=== PATIENT | female | born 1985 | race Caucasian/White ===

== ENCOUNTER 2016-08-03 09:46 | Emergency (ER) | payer OTHER ==
--- NOTE | 2016-08-03 11:12 | EDDOCDS ---
Physician Documentation [facility] Name: Rani Adair Age: 30 yrs Sex: Female : 1985 Arrival Date: 08/03/2016 Time: 09:46 Bed Triage 3 Private MD: NO PRIMARY PHYSICIAN, . Disposition: 08/03/16 11:01 Discharged to Home/Self Care. Impression: Acute pharyngitis, unspecified. - Condition is Stable. - Discharge Instructions: Sore Throat. - Prescriptions for magic mouthwash Mucous Membrane Solution - as directed 5 milliliters by ORAL route 3-4 times daily As needed gargle, swish, spit. Maalox, Liquid Benadryl, Viscous Lidocaine. 1:1:1; 237 milliliter. - Medication Reconciliation, Local Pharmacy Hours form. - Follow up: Emergency Department; When: 2 - 3 days; Reason: Wound/Symptom Recheck, Recheck today's complaints, Continuance of care. Follow up: [facility]; When: Call to arrange an appointment; Reason: Recheck today's complaints, Continuance of care, To establish care. - Problem is new. - Symptoms are unchanged. Historical: - Allergies: No known drug Allergies; - Home Meds: 1. none - PMHx: none; - PSHx: left eye surgery; - Social history: Smoking status: Patient uses tobacco products, light tobacco smoker. No barriers to communication noted, The patient speaks fluent Ukrainian. - Family history: Not pertinent. - : The pt / caregiver states he / she is not on anticoagulants. Home medication list is obtained from the patient. - Exposure Risk Screening:: None identified. 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 0 in. (152.40 cm); 11:10 BP 125 / 67; Pulse 73; Resp 18; Temp 98.2(TE); Pulse Ox 98% on R/A; Pain 0/10; mdr 09:52 Body Mass Index 37.11 (86.18 kg, 152.40 cm) elp MDM: 09:54 Strep Screen, Nursing ordered. dt4 10:51 GATS (NEGATIVE STREP SCREEN) Ordered. EDMS 11:05 Financial registration complete. lg Signatures: Dispatcher [employer] EDPR Lynda Ramsay RN RN Sherry Floyd, Reg Reg Cherelle Aponte RN RN Yuly Reza, [place] PARobin dt4 MTDD
--- NOTE | 2016-08-03 11:12 | EDDOCDS ---
Nurse's Notes [facility] Name: Rani Adair Age: 30 yrs Sex: Female : 1985 Arrival Date: 08/03/2016 Time: 09:46 Bed Triage 3 Private MD: NO PRIMARY PHYSICIAN, . Diagnosis: Acute pharyngitis, unspecified Presentation: 08/03 09:53 Risk factors: Stridor is not present. Drooling is not present. Shortness of breath is kpj not present. Cellulitis is not present. Adult Sepsis Screening: The patient does not have new or worsening altered mentation. Patient's respiratory rate is less than 22. Systolic blood pressure is greater than 100. Patient has a qSOFA score of 0- Negative Sepsis Screen. Suicide/Homicide risk assessment- the patient denies having any suicidal and/or homicidal ideations and does not present with any other emotional, behavioral or mental health complaints. Status: Patient is not a director of women's services or dependent. Transition of care: patient was not received from another setting of care. 09:53 Acuity: SHAGUFTA Level 5 [facility] 09:53 Method Of Arrival: Walkin/Carried/Asstd [facility] 09:53 Presenting complaint: Patient states: sore throat x 3 days , just found out she is [facility] . Triage Assessment: 09:53 General: Appears in no apparent distress, comfortable, Behavior is appropriate for age, kpj pleasant. Pain: Location: throat Pain currently is 3 out of 10 on a pain scale. Pt Declines HIV testing. Neurological: Level of Consciousness is awake, alert, Oriented to person, place, time. EENT: Reports nasal congestion pain when swallowing Pain is 3 out of 10 on a pain scale. Respiratory: Airway is patent Respiratory effort is even, unlabored, Respiratory pattern is regular, symmetrical. Derm: Skin is pink, warm & dry. 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 none - PMHx: none; - PSHx: left eye surgery; - Social history: Smoking status: Patient uses tobacco products, light tobacco smoker. No barriers to communication noted, The patient speaks fluent Serbian. - Family history: Not pertinent. - : The pt / caregiver states he / she is not on anticoagulants. Home medication list is obtained from the patient. - Exposure Risk Screening:: None identified. Screenin:11 Screening information is obtained from the patient. Fall risk: No risks identified. dsf Assistance ADL's: requires no assistance with activities of daily living. Abuse/DV Screen: The patient / caregiver reports he/she is: not in a situation that causes fear, pain or injury. Nutritional screening: No deficits noted. Advance Directives: Currently, there is no health care proxy. home support is adequate. Assessment: 11:10 Adult Sepsis Screening: The patient does not have new or worsening altered mentation. dsf Patient's respiratory rate is less than 22. Systolic blood pressure is greater than 100. Patient has a qSOFA score of 0- Negative Sepsis Screen. General: Appears in no apparent distress, Behavior is appropriate for age, cooperative. Neurological: Level of Consciousness is awake, alert. Cardiovascular: Capillary refill < 3 seconds. Respiratory: Airway is patent Respiratory effort is even, unlabored, Respiratory pattern is regular, symmetrical. Derm: Skin is pink, warm & dry. Vital Signs: 09:52 BP 122 / 70; Pulse 85; Resp 16; Temp 98.0; Pulse Ox 100% ; Weight 86.18 kg; Height 5 elp ft. 0 in. (152.40 cm); 11:10 BP 125 / 67; Pulse 73; Resp 18; Temp 98.2(TE); Pulse Ox 98% on R/A; Pain 0/10; mdr 09:52 Body Mass Index 37.11 (86.18 kg, 152.40 cm) elp Vitals: 09:52 Log In Time: August 03, 2016 at 09:43. elp 10:50 Strep Screen is obtained and tested: Negative, a GATSNEG culture is ordered in [facility] and sent. ED Course: 09:49 Patient visited by Daja John PCA. elp 09:49 Patient moved to Waiting elp 09:52 NO PRIMARY PHYSICIAN, . is Private Physician. elp 09:52 Patient moved to Pre RCE elp 09:53 Patient visited by Daja John PCA. elp 09:53 Triage Initiated [facility] 10:40 Patient moved to Triage 3 dwg 10:41 Yuly Daniels [facility]-C [facility]. dt4 10:41 Anna Bal MD is Attending Physician. dt4 10:41 Patient visited by Yuly Daniels PA-C. dt4 10:53 GATS (NEGATIVE STREP SCREEN) Sent. dwg 11:01 [facility] is Referral Physician. dt4 11:11 The patient / caregiver is instructed regarding the plan of care and ED course. dsf 11:11 No IV's were initiated during this patient's visit. No procedures done that require dsf assistance. Order Results: There are currently no results for this order. Outcome: 11:01 Discharge ordered by Provider. dt4 11:11 Discharge Assessment: Patient awake, alert and oriented x 3. No cognitive and/or dsf functional deficits noted. Patient verbalized understanding of disposition instructions. patient administered narcotics - no. The following High Risk Discharge criteria are identified: None. Discharged to home ambulatory. Condition: good Condition: stable. Discharge instructions given to patient, Instructed on discharge instructions, follow up and referral plans. medication usage, Demonstrated understanding of instructions, medications, Pt was receptive of discharge instructions/ teaching. Prescriptions given X 1. No special radiology studies were completed. Property sent home with patient. 11:12 Patient left the ED. dsf Signatures: Harry Arambula RN RN [facility] Lynda Ramsay RN RN [facility] Cherelle MonroeRN RN ds Daja John, SKI LIFT MECHANIC SKI LIFT MECHANIC elp Yuly Daniels PA-C PA-C dt4 Gomez Capone, SKI LIFT MECHANIC SKI LIFT MECHANIC mdr Corrections: (The following items were deleted from the chart) 09:56 09:53 Presenting complaint: Mother states: sore throat x 3 days [facility] MTDD
--- NOTE | 2016-08-05 12:13 | EDDOCDS ---
Physician Documentation [facility] Name: Rani Adair Age: 30 yrs Sex: Female : 1985 Arrival Date: 08/03/2016 Time: 09:46 Bed Triage 3 Private MD: NO PRIMARY PHYSICIAN, . Disposition: 08/03/16 11:01 Discharged to Home/Self Care. Impression: Acute pharyngitis, unspecified. - Condition is Stable. - Discharge Instructions: Sore Throat. - Prescriptions for magic mouthwash Mucous Membrane Solution - as directed 5 milliliters by ORAL route 3-4 times daily As needed gargle, swish, spit. Maalox, Liquid Benadryl, Viscous Lidocaine. 1:1:1; 237 milliliter. - Medication Reconciliation, Local Pharmacy Hours form. - Follow up: Emergency Department; When: 2 - 3 days; Reason: Wound/Symptom Recheck, Recheck today's complaints, Continuance of care. Follow up: [facility]; When: Call to arrange an appointment; Reason: Recheck today's complaints, Continuance of care, To establish care. - Problem is new. - Symptoms are unchanged. Historical: - Allergies: No known drug Allergies; - Home Meds: 1. none - PMHx: none; - PSHx: left eye surgery; - Social history: Smoking status: Patient uses tobacco products, light tobacco smoker. No barriers to communication noted, The patient speaks fluent Cymraes. - Family history: Not pertinent. - : The pt / caregiver states he / she is not on anticoagulants. Home medication list is obtained from the patient. - Exposure Risk Screening:: None identified. 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 0 in. (152.40 cm); 11:10 BP 125 / 67; Pulse 73; Resp 18; Temp 98.2(TE); Pulse Ox 98% on R/A; Pain 0/10; mdr 09:52 Body Mass Index 37.11 (86.18 kg, 152.40 cm) elp MDM: 09:54 Strep Screen, Nursing ordered. dt4 10:51 GATS (NEGATIVE STREP SCREEN) Ordered. EDMS 11:05 Financial registration complete. lg 11:13 [facility] Payment Agreement was scanned into [employer] and attached to record. lg 14:48 T-Sheet-- Draft Copy was scanned into [employer] and attached to record. gb Signatures: Dispatcher [employer] EDMS Lynda Ramsay, RN RN Ana Costa, Reg Reg gb Sherry Rothman, Reg Reg lg Cherelle Monroe,RN RN Yuly Reza, [place] PARobin dt4 The chart was reviewed and I authenticate all verbal orders and agree with the evaluation and treatment provided.Attachments: 11:13 [facility] Payment Agreement lg 14:48 T-Sheet-- Draft Copy gb Chart Complete MTDD
--- NOTE | 2016-08-05 12:13 | EDDOCDS ---
Physician Documentation [facility] Name: Rani Adair Age: 30 yrs Sex: Female : 1985 Arrival Date: 08/03/2016 Time: 09:46 Bed Triage 3 Private MD: NO PRIMARY PHYSICIAN, . Disposition: 08/03/16 11:01 Discharged to Home/Self Care. Impression: Acute pharyngitis, unspecified. - Condition is Stable. - Discharge Instructions: Sore Throat. - Prescriptions for magic mouthwash Mucous Membrane Solution - as directed 5 milliliters by ORAL route 3-4 times daily As needed gargle, swish, spit. Maalox, Liquid Benadryl, Viscous Lidocaine. 1:1:1; 237 milliliter. - Medication Reconciliation, Local Pharmacy Hours form. - Follow up: Emergency Department; When: 2 - 3 days; Reason: Wound/Symptom Recheck, Recheck today's complaints, Continuance of care. Follow up: [facility]; When: Call to arrange an appointment; Reason: Recheck today's complaints, Continuance of care, To establish care. - Problem is new. - Symptoms are unchanged. Historical: - Allergies: No known drug Allergies; - Home Meds: 1. none - PMHx: none; - PSHx: left eye surgery; - Social history: Smoking status: Patient uses tobacco products, light tobacco smoker. No barriers to communication noted, The patient speaks fluent Argentine. - Family history: Not pertinent. - : The pt / caregiver states he / she is not on anticoagulants. Home medication list is obtained from the patient. - Exposure Risk Screening:: None identified. 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 0 in. (152.40 cm); 11:10 BP 125 / 67; Pulse 73; Resp 18; Temp 98.2(TE); Pulse Ox 98% on R/A; Pain 0/10; mdr 09:52 Body Mass Index 37.11 (86.18 kg, 152.40 cm) elp MDM: 09:54 Strep Screen, Nursing ordered. dt4 10:51 GATS (NEGATIVE STREP SCREEN) Ordered. EDMS 11:05 Financial registration complete. lg 11:13 [facility] Payment Agreement was scanned into [employer] and attached to record. lg 14:48 T-Sheet-- Draft Copy was scanned into [employer] and attached to record. gb Signatures: Dispatcher [employer] EDMS Lynda Ramsay, RN RN Ana Costa, Reg Reg gb Sherry Rothman, Reg Reg lg Cherelle Monroe,RN RN Yuly Reza, [place] PARobin dt4 The chart was reviewed and I authenticate all verbal orders and agree with the evaluation and treatment provided.Attachments: 11:13 [facility] Payment Agreement lg 14:48 T-Sheet-- Draft Copy gb Chart Complete MTDD
--- NOTE | 2016-08-05 12:13 | EDDOCDS ---
Nurse's Notes [facility] Name: Rani Adair Age: 30 yrs Sex: Female : 1985 Arrival Date: 08/03/2016 Time: 09:46 Bed Triage 3 Private MD: NO PRIMARY PHYSICIAN, . Diagnosis: Acute pharyngitis, unspecified Presentation: 08/03 09:53 Risk factors: Stridor is not present. Drooling is not present. Shortness of breath is kpj not present. Cellulitis is not present. Adult Sepsis Screening: The patient does not have new or worsening altered mentation. Patient's respiratory rate is less than 22. Systolic blood pressure is greater than 100. Patient has a qSOFA score of 0- Negative Sepsis Screen. Suicide/Homicide risk assessment- the patient denies having any suicidal and/or homicidal ideations and does not present with any other emotional, behavioral or mental health complaints. Status: Patient is not a library services coordinator or dependent. Transition of care: patient was not received from another setting of care. 09:53 Acuity: SHAGUFTA Level 5 [facility] 09:53 Method Of Arrival: Walkin/Carried/Asstd [facility] 09:53 Presenting complaint: Patient states: sore throat x 3 days , just found out she is [facility] . Triage Assessment: 09:53 General: Appears in no apparent distress, comfortable, Behavior is appropriate for age, kpj pleasant. Pain: Location: throat Pain currently is 3 out of 10 on a pain scale. Pt Declines HIV testing. Neurological: Level of Consciousness is awake, alert, Oriented to person, place, time. EENT: Reports nasal congestion pain when swallowing Pain is 3 out of 10 on a pain scale. Respiratory: Airway is patent Respiratory effort is even, unlabored, Respiratory pattern is regular, symmetrical. Derm: Skin is pink, warm & dry. 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 none - PMHx: none; - PSHx: left eye surgery; - Social history: Smoking status: Patient uses tobacco products, light tobacco smoker. No barriers to communication noted, The patient speaks fluent Mohawk. - Family history: Not pertinent. - : The pt / caregiver states he / she is not on anticoagulants. Home medication list is obtained from the patient. - Exposure Risk Screening:: None identified. Screenin:11 Screening information is obtained from the patient. Fall risk: No risks identified. dsf Assistance ADL's: requires no assistance with activities of daily living. Abuse/DV Screen: The patient / caregiver reports he/she is: not in a situation that causes fear, pain or injury. Nutritional screening: No deficits noted. Advance Directives: Currently, there is no health care proxy. home support is adequate. Assessment: 11:10 Adult Sepsis Screening: The patient does not have new or worsening altered mentation. dsf Patient's respiratory rate is less than 22. Systolic blood pressure is greater than 100. Patient has a qSOFA score of 0- Negative Sepsis Screen. General: Appears in no apparent distress, Behavior is appropriate for age, cooperative. Neurological: Level of Consciousness is awake, alert. Cardiovascular: Capillary refill < 3 seconds. Respiratory: Airway is patent Respiratory effort is even, unlabored, Respiratory pattern is regular, symmetrical. Derm: Skin is pink, warm & dry. Vital Signs: 09:52 BP 122 / 70; Pulse 85; Resp 16; Temp 98.0; Pulse Ox 100% ; Weight 86.18 kg; Height 5 elp ft. 0 in. (152.40 cm); 11:10 BP 125 / 67; Pulse 73; Resp 18; Temp 98.2(TE); Pulse Ox 98% on R/A; Pain 0/10; mdr 09:52 Body Mass Index 37.11 (86.18 kg, 152.40 cm) elp Vitals: 09:52 Log In Time: August 03, 2016 at 09:43. elp 10:50 Strep Screen is obtained and tested: Negative, a GATSNEG culture is ordered in [facility] and sent. ED Course: 09:49 Patient visited by Daja John PCA. elp 09:49 Patient moved to Waiting elp 09:52 NO PRIMARY PHYSICIAN, . is Private Physician. elp 09:52 Patient moved to Pre RCE elp 09:53 Patient visited by Daja John PCA. elp 09:53 Triage Initiated [facility] 10:40 Patient moved to Triage 3 dwg 10:41 Yuly Daniels PA-C is PHCP. dt4 10:41 Anna Bal MD is Attending Physician. dt4 10:41 Patient visited by Yuly Daniels PA-C. dt4 10:53 GATS (NEGATIVE STREP SCREEN) Sent. dwg 11:01 [facility] is Referral Physician. dt4 11:11 The patient / caregiver is instructed regarding the plan of care and ED course. dsf 11:11 No IV's were initiated during this patient's visit. No procedures done that require dsf assistance. 11:13 [facility] Payment Agreement was scanned into [employer]panda / [employer] and attached to record. 14:48 T-Sheet-- Draft Copy was scanned into [employer]panda / [employer] and attached to record. gb Order Results: Lab Order: GATS (NEGATIVE STREP SCREEN); SPEC'M 08/03/16 00:00 Test: GATS CULTURE (NEG STREP SCR); Value: GATS RESULT NEGATIVE FOR STREP PYOGENES (GROUP A); Status: F Test: GATS CULTURE (NEG STREP SCR); Value: <EXTERNAL COMMENT eCWMed> FULL REPORT IN LAB NOTES (eCW and Medent).; Status: F Outcome: 11:01 Discharge ordered by Provider. dt4 11:11 Discharge Assessment: Patient awake, alert and oriented x 3. No cognitive and/or dsf functional deficits noted. Patient verbalized understanding of disposition instructions. patient administered narcotics - no. The following High Risk Discharge criteria are identified: None. Discharged to home ambulatory. Condition: good Condition: stable. Discharge instructions given to patient, Instructed on discharge instructions, follow up and referral plans. medication usage, Demonstrated understanding of instructions, medications, Pt was receptive of discharge instructions/ teaching. Prescriptions given X 1. No special radiology studies were completed. Property sent home with patient. 11:12 Patient left the ED. dsf Signatures: Harry Arambula, RN RN [facility] Lynda Ramsay RN RN Ana Fair, Reg Reg gb Sherry Rothman, Reg Reg lg Cherelle Monroe RN RN dsf Daja John, ATM MANAGER ATM MANAGER elp Yuly Daniels PA-C PA-C dt4 Gomez Capone, ATM MANAGER ATM MANAGER mdr Corrections: (The following items were deleted from the chart) 09:56 09:53 Presenting complaint: Mother states: sore throat x 3 days kpj kpj Chart Complete MTDD
== END 2016-08-03 11:12 | disposition home or self-care (01) ==
LOC: M ED 09:46
DX: O99.511 Diseases of the respiratory system complicating pregnancy, first trimester (principal); J02.9 Acute pharyngitis, unspecified; Z3A.10 10 weeks gestation of pregnancy; O99.331 Smoking (tobacco) complicating pregnancy, first trimester; F17.210 Nicotine dependence, cigarettes, uncomplicated

== ENCOUNTER → 2016-08-16 | Outpatient (CLI) | payer OTHER ==
--- NOTE | 2016-08-16 15:43 | REP ---
Clinical: Dating and viability. Technique: Transabdominal and transvaginal first trimester obstetrical ultrasound with color Doppler evaluation. Findings: A single live early intrauterine is identified. Gestational sac with yolk sac and pole noted. CRL of 4 mm corresponds to 6 weeks 0 days gestational age with estimated date of delivery 04/11/2017. heart rate equals 124 beats per minute. Uterus and maternal ovaries are normal in appearance with right corpus luteal cyst identified. No pelvic fluid. Impression: Single live early intrauterine at 6 weeks 0 days gestational age. Complete anatomical assessment should be performed at 19-20 weeks. Signed by Jad Dewitt MD 08/16/2016 03:34 P
== END ==
LOC: M SMT 14:18
PROVIDERS: ATTEND Nurse Practitioner Women's Health
DX: Z36 Encounter for antenatal screening of mother (principal); Z3A.01 Less than 8 weeks gestation of pregnancy

== ENCOUNTER 2017-04-13 23:02 | Emergency (ER) | payer OTHER ==
[~2017-04-13] VITALS: Ht 152.4 cm; Wt 84.3 kg
[2017-04-13 23:02] VITALS: BP 127/95
== END 2017-04-14 03:22 | disposition left against medical advice (07) ==
LOC: M ED 23:02
DX: Z53.21 Procedure and treatment not carried out due to patient leaving prior to being seen by health care provider (principal)

== ENCOUNTER → 2019-04-11 | Outpatient (REF) | payer OTHER ==
[2019-04-11 18:37] LABS: ALBUMIN 4.1 GM/DL (3.2-5.2); ALT/SGPT 20 U/L (12-78); BILIRUBIN,TOTAL 0.8 MG/DL (0.2-1.0); BLOOD UREA NITROGEN 11 MG/DL (7-18); CALCIUM LEVEL 9.2 MG/DL (8.5-10.1); CARBON DIOXIDE LEVEL 28 MEQ/L (21-32); CHLORIDE LEVEL 108 MEQ/L (98-107); CREATININE FOR GFR 0.86 MG/DL (0.55-1.30); GLOMERULAR FILTRATION RATE > 60.0 (>60); GLUCOSE, FASTING 89 MG/DL (70-100); POTASSIUM SERUM 4.4 MEQ/L (3.5-5.1); SODIUM LEVEL 139 MEQ/L (136-145); TOTAL PROTEIN 7.2 GM/DL (6.4-8.2)
[2019-04-11 18:48] LABS: BASO % 0.4 % (0.0-1.0); EOS # 0.1 10^3/uL (0.0-0.5); EOS % 0.9 % (0.0-3.0); HEMOGLOBIN 14.4 g/dl (12.0-15.5); LYMPH # 2.4 10^3/uL (1.5-5.0); MEAN CORPUSCULAR HEMOGLOBIN 31.9 pg (27.0-33.0); MEAN CORPUSCULAR HGB CONC 32.7 g/dl (32.0-36.5); MEAN CORPUSCULAR VOLUME 97.3 fl (80.0-96.0); MONO # 0.5 10^3/uL (0.0-0.8); MONO % 6.6 % (0.0-5.0); NEUTROPHILS # 4.4 10^3/uL (1.5-8.5); NEUTROPHILS % 59.8 % (36.0-66.0); PLATELET COUNT, AUTOMATED 168 10^3/uL (150-450); RED BLOOD COUNT 4.52 10^6/uL (4.00-5.40); WHITE BLOOD COUNT 7.4 10^3/uL (4.0-10.0)
== END ==
LOC: M LAB REF 16:04
PROVIDERS: ATTEND Family Medicine
DX: Z00.00 Encounter for general adult medical examination without abnormal findings (principal); K76.0 Fatty (change of) liver, not elsewhere classified